=== PATIENT | male | born 1980 | race Caucasian/White ===

== ENCOUNTER 2021-02-03 18:21 | Emergency (ER) | payer BC, OTHER ==
[2021-02-03] MEDS ORDERED: MAGNESIUM SULFATE SYG 4.06 MEQ/ML SYRINGE ONE (18:22)
[2021-02-03] MEDS ORDERED: ATROPINE SULFATE 0.1 MG/ML 10ML SYRINGE ONE (18:22)
[2021-02-03] MEDS ORDERED: EPINEPHrine 10 ML SYRINGE (0.1 MG/ML) ONE (18:22)
[2021-02-03] MEDS ORDERED: AMIODARONE 50 MG/ML 3 ML VIAL IV ONE (18:22)
[2021-02-03] MEDS ORDERED: NOREPINEPHRINE 1 MG/ML 4 ML VIAL IV ONE (18:22)
[2021-02-03] MEDS ORDERED: LIDOCAINE 2% SYG (PF) 100 MG/5 ML ONE (18:22)
[2021-02-03] MEDS ORDERED: SODIUM BICARB 8.4% 50 ML SYR (1 MEQ/ML) ONE (18:22)
[2021-02-03 18:48] LABS: Glucose,Whole Blood 93 mg/dL (75-99)
--- NOTE | 2021-02-03 20:20 | ED ---
General Adult HPI - General Stated complaint: chest pain Time Seen by Provider: 02/03/21 19:17 Source: family, RN notes reviewed, old records reviewed Mode of arrival: wheelchair Limitations: altered mental status, physical limitation - History of Present Illness Initial comments: 40-year-old male who presented as an [id number] cardiac arrest. History was initially limited on this patient. He is brought in by his mother by private vehicle. He was found in the ambulatory triage area in the car unresponsive. The patient had apparently become unresponsive during transport. He was moved to a gurney and transported to the resuscitation area. Initial rhythm was ventricular fibrillation. No previous history of CAD. History of sleep apnea with no other known medical history. Review of Systems ROS Statement: Those systems with pertinent positive or pertinent negative responses have been documented in the HPI. ROS Other: All systems not noted in ROS Statement are negative. Past Medical History Past Medical History: No Reported History History of Any Multi-Drug Resistant Organisms: None Reported Past Surgical History: No Surgical Hx Reported Past Psychological History: No Psychological Hx Reported Smoking Status: Unknown if ever smoked Past Alcohol Use History: Unable to Obtain Past Drug Use History: Unable to Obtain General Exam Limitations: no limitations General appearance: obtunded, other (Agonal respirations, nonresponsive) Head exam: Present: atraumatic, normocephalic Eye exam: Present: normal appearance (4 mm bilaterally, sluggish) ENT exam: Present: other (Gag is present, there is agonal respirations.) Respiratory exam: Present: other (Patient supported by BVM and intubated upon arrival) Cardiovascular Exam: Present: other (No spontaneous heart sounds) GI/Abdominal exam: Present: distended. Absent: tenderness, guarding Extremities exam: Absent: normal capillary refill (Peripheral cyanosis) Neurological exam: Present: other (Occasional jerky movements, no purposeful movements, does not withdraw to pain.) EKG Findings - EKG Comments: EKG Findings:: EKG obtained at 1904, wide-complex rhythm, ST segment elevation anteriorly no sinus activity rate of 44, QRS duration 200, QTC 422. Procedures - Intubation Laryngoscope: Sophie Size: 4 ET Tube Size: 8 ET Tube Uncuffed: No Tube Secured Depth (cm): 23 Tube Secured Location: lips Tube Placement Confirmation: visualized tube passing through cords, equal breath sounds bilaterally, confirmation by capnometry Patient Tolerated Procedure: well Intubation Complications: none Medical Decision Making - Medical Decision Making 40-year-old male presenting in out of Hospital cardiac arrest. Initial rhythm is ventricular fibrillation. Resuscitation is guided by ACLS protocol. Patient was intubated with good color change. All efforts were made to resuscitate this patient including dual defibrillation, amiodarone, lidocaine, multiple rounds of epinephrine and sodium bicarb, as below and metoprolol. There was a brief period of organized bradycardia. At that time to [place] [facility] was activated and I discussed the case with Dr. Patino who agreed to take the patient for urgent heart catheterization with a presumptive diagnosis of MT as the cause of his ventricular fibrillation. The patient was not stable at this time however it was felt that this might potentially benefit him. However the patient only remained in an organized rhythm for less than 5 minutes and ultimately d eteriorated to asystole. At this time the resuscitation efforts were terminated and the patient's time of was 1915. I was able to discuss the case with the medical psychotherapist as well as the family. - Lab Data Lab Results 02/03/21 Range/Units 18:27 POC Glucose (mg/dL) 93 (75-99) mg/dL POC Glu Statistics Manager ID GEORGI Pierce Andre Critical Care Time Critical Care Time: Yes Total Critical Care Time: 53 Disposition Clinical Impression: Cardiac arrest, Sudden cardiac , Ventricular fibrillation Disposition: Condition: Undetermined Is patient prescribed a controlled substance at d/c from ED?: No Referrals: None,Stated [Primary Care Provider] - 1-2 days Time of Disposition: 19:16 Preliminary Cause of : Ventricular fibrillation, cardiac arrest
== END 2021-02-03 23:00 | disposition expired ==
LOC: EC 18:21
DX: I46.9 Cardiac arrest, cause unspecified (principal); I49.01 Ventricular fibrillation
CPT/HCPCS: 31500; 36415; 99291